=== PATIENT | female | born 1975 | race Caucasian/White ===

== ENCOUNTER 2024-07-25 09:12 | Outpatient (AMB) | payer BC, SELFPAY ==
[2024-07-25 09:10] VITALS: BP 117/72; PULSE 65; RESP 17; TEMP 36.6; O2SAT 98; BMI 23.0
--- NOTE | 2024-07-25 09:10 | ACNOTE_ITS ---
Vital Signs 07/25/24 09:10 Height 1.7 m Height Method Stated Weight 66.735 kg Weight Measurement Method Standing Scale BMI 23.0 BP 117/72 Blood Pressure Source Automatic Cuff Blood Pressure Location Right Upper Arm Position Sitting Respiration 17 Pulse 65 Pulse Source Monitor Temp 97.8 F Temp Source Temporal Artery Scan Pulse Oximetry (%) 98 Oxygen Delivery Method Room Air Allergies/Meds Allergies & Medications Allergies Sulfa (Sulfonamide Antibiotics) Allergy (Mild, Verified 07/25/24 09:19) Hives terbutaline Allergy (Verified 07/25/24 09:18) Medication Reconciliation No Known Home Medications 07/25/24 [History Confirmed 07/25/24] MA Intake Visit Data Collection New Patient or Established: Established Patient (seen at [facility] within 3 years) Seen by Clinical Staff ONLY (RN/MA): No Pain Present Currently: No Pain scale:: 0 Pain Scale Used: Salmer[place]queda/Numerical Cage Shift Manager Required: No PCP or OBGYN visit in last 3 months: No Hx Now: No Do You Feel Safe at Home: Yes Authorities Contacted: N/A Smoking Status Smoking Status: Never smoker Immunization / Flu Flu Vaccine in the Last 12 Months: No Flu Vaccine Exclusion Criteria: No Exclusion Criteria Past Medical History Social History SMOKING STATUS: Smoking status: Never smoker Patient Portal Questionaires Social History Tobacco History Smoking Status: Never smoker Domestic Abuse History Do You Feel Safe at Home: Yes Review of Systems Report any current symptoms Only answer those that you have currently: Past Medical History Past Medical History Have you ever been diagnosed with any of the following: History of Present Illness HPI Narrative Patient here today requesting quantefiron test for Tb for her job. Patient has no history of positive PPD or recent expsodure to TB. Sent quantiferon order to lab. Objective/Exam Narrative Physical exam: Physical Exam GENERAL: NAD, AAOx3 HEENT: Moist mucosa. Eyes open, symmetrical, & clear CARDIO: Heart RRR, no obvious murmurs PULM: No noted coughing/dyspnea CTA B/L, no R/W/R GI: Abdomen soft, nondistended, no pain on palpation. BSx4 SKIN/MSK/EXT: No wounds/rashes/edema/amputations, no pain on palpation. Pedal pulses present B/L NEURO: AAOx3, no focal neuro deficits, able to move all 4 extremities Assessment & Plan Diagnosis / Problem List Orders: Orders Quantiferon-TB* Today R00.2 - Palpitations, Z11.1 - Encounter for screening for respiratory tuberculosis Office Procedures [facility] Level of Care Nursing/Assessment Patient Status: Established Patient Nursing Assessment/Reassessment: Medication Reconciliation, Update PMH in EMR and Vital Signs Coordination of Care: Complex Care and Chronic Disease 1-5, Consent,records obtained, informed consent, Education Simp Pt/Fam, Lab and Imaging orders and Staff clarify orders Established Patient Charge Established Patient Point Assignment: 100 Established Patient Point Charge: EP Level 3 (80-115)
== END 2024-07-25 10:02 | disposition home or self-care (01) ==
LOC: HODAHC 09:12
PROVIDERS: Supervising Provider Internal Medicine; Visit Provider Student in an Organized Health Care Education/Training Program
DX: Z11.1 Encounter for screening for respiratory tuberculosis (principal); R00.2 Palpitations
CPT/HCPCS: 99213; G0463

== ENCOUNTER → 2024-07-29 | Outpatient (CLI) | payer BC, SELFPAY ==
[2024-07-29 07:38] LABS: Quantiferon-TB* See Sep Rpt
== END | disposition home or self-care (01) ==
PROVIDERS: PCP Family Medicine; Referring Provider Family Medicine; Visit Provider Family Medicine
DX: R00.2 Palpitations (principal); Z11.1 Encounter for screening for respiratory tuberculosis
CPT/HCPCS: 86480

== ENCOUNTER 2025-01-07 08:22 | Outpatient (AMB) | payer BC, SELFPAY ==
[2025-01-07 08:32] VITALS: BP 107/74; PULSE 74; RESP 18; TEMP 36.2; O2SAT 98; BMI 23.2
--- NOTE | 2025-01-07 08:32 | GYNCLNT_ITS ---
Vital Signs 01/07/25 08:32 Height 1.7 m Height Method Stated Weight 67.358 kg Weight Measurement Method Standing Scale BMI 23.2 BP 107/74 Blood Pressure Source Automatic Cuff Blood Pressure Location Left Upper Arm Position Sitting Respiration 18 Pulse 74 Pulse Source Monitor Temp 97.2 F Temp Source Oral Pulse Oximetry (%) 98 Oxygen Delivery Method Room Air Allergies/Home Meds Allergies & Medications Allergies Sulfa (Sulfonamide Antibiotics) Allergy (Mild, Verified 01/07/25 08:33) Hives terbutaline Allergy (Verified 01/07/25 08:33) Medication Reconciliation No Known Home Medications 07/25/24 [History Confirmed 01/07/25] Intake Visit Data Collection New Patient or Established: Established Patient (seen at [facility] within 3 years) 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 Seen by Clinical Staff ONLY (RN/MA): No Program Director Scouting Required: No Do You Feel Safe at Home: Yes Authorities Contacted: N/A PCP or OBGYN visit in last 3 months: Yes Date of Last PCP or OBGYN visit: 07/25/24 Hx Now: No Are you currently on any form of Control: No Last menstrual period: 12/17/24 Pain Present Currently: No Pain Scale Used: Salmeron-[place]osqueda/Numerical Pain scale:: 0 Smoking Status Smoking Status: Never smoker Immunizations Flu Vaccine in the Last 12 Months: No Flu Vaccine Exclusion Criteria: No Exclusion Criteria [employer] history [employer] History Menstrual regularity: regular Flow: normal Monthly: Yes Age at menarche: 15 Menopausal: No Currently sexually active: Yes Questionnaires Covid-19 Vaccine Questionnaire Has patient been vacinated for Covid-19 Have you been vacinated for Covid-19: No PHQ-9 PHQ-2 Over the last 2 weeks, how often have you been bothered by any of the following problems? 1. Little interest or pleasure in doing things: not at all 2. Feeling down, depressed, or hopeless: not at all Total score: 0 PHQ-9 3. Trouble falling or staying asleep, or sleeping too much: Not at all 4. Feeling tired or having little energy: Not at all 5. Poor appetite or overeating: Not at all 6. Feeling bad about yourself - or that you are a failure or have let yourself or your family down: Not at all 7. Trouble concentrating on things, such as reading the newspaper or watching television: Not at all 8. Moving or speaking so slowly that other people could have noticed? - Or the opposite - being so fidgety or restless that you have been moving around a lot more than usual: not at all 9. Thoughts that you would be better off or of hurting yourself in some way: Not at all Total score: 0 If you checked off any problems, how difficult have these problems made it for you to do your work, take care of things at home, or get along with other people?: not difficult at all Source: Developed by Drs. Samir Sweeney, Charlotte Hope, Narayan Castañeda and colleagues, with an educational tomasz from [employer]. Depression screen completed yes Social History Living Situation History Marital Status: Lives With: Family Housing: House Tobacco History Smoking Status: Never smoker Second Hand Smoke Exposure: No Alcohol History Alcohol Intake: Never Domestic Abuse History Do You Feel Safe at Home: Yes History of Present Illness HPI Narrative Left breast tenderness noticed last night during shower, body aches last night improved with Tylenol this morning Josefa Tracy presents with left breast tenderness that she noticed last night while showering. The tenderness is localized to the left breast only and occurred approximately one week before her expected menstrual period. She initially considered that the sensitivity might be related to her menstrual cycle or possibly a hormonal imbalance associated with her Chayito's thyroiditis. She experienced generalized body aches last night, which improved after taking Tylenol this morning. She denies fever, nipple discharge, or palpable lumps or cysts in the breast. She performed self-examination and did not detect any masses. The patient has a medical history of Chayito's thyroiditis and is followed by Dr. Modi, an assistant operator in [place]. She reports that she has not been placed on medication for her Chayito's because her T-levels have been normal, with only elevated antibodies. She is due for routine healthcare maintenance including laboratory work and a general checkup. Her last Pap smear is not current, and she had a mammogram last year that showed a BI-RADS 0 result with density in the upper outer right breast that was cleared by subsequent ultrasound, upgraded to BI-RADS 1. She also has a thyroid nodule that was recommended for biopsy, which has not yet been completed since her last endocrinology visit in December. The patient is currently on leave from work to care for her mother, who recently started chemotherapy on Sunday. Her mother has been hospitalized intermittently over the past couple of months and was diagnosed with adenocarcinoma involving a spinal tumor after an emergency department visit two months ago. Despite extensive workup including scoping, lymph node biopsies, and PET scanning, the primary source of the adenocarcinoma has not been identified, though blood markers suggest a gastrointestinal origin. Medical History: - Chayito's thyroiditis with elevated antibodies but normal T4 levels, followed by assistant operator Dr. 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 No masses or lumps palpated in breast tissue. - Neck: No lymphadenopathy palpated in axillary region. Office Procedures [facility] LOC & Office Proc's Nursing/Assessment Patient Status: Established Patient OB Clinic Nursing Assessment: Medication Reconciliation, Update PMH in EMR and Vital Signs OB Clinic Coordination of Care: Consent,records obtained, informed consent, Education Simp Pt/Fam, Lab and Imaging orders, Results/Orders obtained and Staff clarify orders Established Patient Charge Established Patient Point Assignment: 80 Established Patient Point Charge: EP Level 3 (80-115) Assessment & Plan Diagnosis / Problem List (1) Chayito thyroiditis: Status: Acute (2) Perimenopausal menorrhagia: Status: Acute (3) Myalgia, unspecified site: Status: Acute Plan Left breast tenderness Assessment: Patient reports unilateral left breast tenderness noted during showering the previous night, occurring one week prior to expected menstruation. Associated with generalized body aches that improved with Tylenol. No fever, nipple discharge, palpable lumps, or cysts reported. Physical examination reveals no palpable lymph nodes in axilla or breast tissue. Tenderness is reproducible on palpation and localized to the pectoral muscle area. Clinical findings most consistent with pectoral muscle strain rather than mastitis or breast pathology. Plan: - Alternate ibuprofen and Tylenol for pain management - Avoid hot or cold packs - Reassess in 2-3 days; if symptoms persist, will obtain breast ultrasound Chayito's thyroiditis Assessment: Known Chayito's thyroiditis previously managed by Dr. Modi in [place]. Patient reports elevated antibodies with normal T-levels, currently not on thyroid medication. Patient requesting comprehensive evaluation and new endocrinology referral. Plan: - Order comprehensive laboratory panel including lipids, kidney function, liver function, FSH, and thyroid panel to establish baseline - Establish new endocrinology referral to provider at [facility] thyroid nodule biopsy until after endocrinology consultation Overdue preventive care Assessment: Patient requires updated Pap smear and general health maintenance. Previous mammogram performed last year showed BI-RADS 0 with right upper outer quadrant density that was cleared by ultrasound follow-up (BI-RADS 1). Thyroid ultrasound previously showed nodule with biopsy recommendation that was not completed. Plan: - Schedule comprehensive physical examination - Perform Pap smear - Renew mammogram order (due to age under 50, screening interval every 2 years)
== END 2025-01-07 08:51 | disposition home or self-care (01) ==
LOC: HODSOBC 08:22
PROVIDERS: Supervising Provider Obstetrics & Gynecology; Visit Provider Obstetrics & Gynecology
DX: E06.3 Autoimmune thyroiditis (principal); N92.4 Excessive bleeding in the premenopausal period; M79.10 Myalgia, unspecified site; Z88.2 Allergy status to sulfonamides; Z88.8 Allergy status to other drugs, medicaments and biological substances; Z63.79 Other stressful life events affecting family and household
CPT/HCPCS: 99213; G0463